=== PATIENT | female | born 1935 | race Caucasian/White ===

== ENCOUNTER → 2016-05-12 | Outpatient (CLI) | payer OTHER ==
[~2016-05-12] MED LIST: BENA20TA
[2016-05-12 11:02] LABS: Urine RBC None Seen /hpf (0 - 4)
[2016-05-12 11:43] LABS: Basophils # (auto) 0 uL; Basophils % (auto) 0.5 % (0.0-2.0); Eosinophils # (auto) 0.3 uL; Eosinophils % (auto) 3.3 % (0.0-7.0); Hematocrit 45.4 % (36.0-46.0); Hemoglobin 15.1 g/dL (12.2-16.2); Lymphocytes # (auto) 3.3 uL; Lymphocytes % (auto) 31.4 % (10.0-50.0); Mean Corpuscular Hemoglobin 31.9 pg (28.0-32.0); Mean Corpuscular Hgb Conc. 33.3 g/dL (32.0-36.0); Mean Platelet Volume 8.6 fL (7.4-10.4); Monocytes # (auto) 0.7 uL; Neutrophils # (auto) 6.1 uL; Neutrophils % (auto) 57.8 % (37.0-80.0); Platelet Count (auto) 431 10^3/uL (140-450); Red Cell Distribution Width 15.4 % (11.6-16.0); White Blood Cell 10.5 10^3/uL (4.4-10.8)
[2016-05-12 11:51] LABS: Urine Bilirubin Negative (Negative); Urine Blood Negative /uL (Negative); Urine Color Yellow (Yellow); Urine Glucose Normal (Normal); Urine Ketone Negative (Negative); Urine Nitrite Negative (Negative); Urine Squamous Epithelial Cell FEW /hpf (<5); Urine Urobilinogen Normal (Negative); Urine pH 6.5 (5.0-8.0)
[2016-05-12 14:19] LABS: Albumin 3.7 g/dL (3.4-5.0); BUN/Creatinine Ratio 15.5; Bilirubin, Total 0.4 mg/dL (0.2-1.0); Calcium 8.7 mg/dL (8.5-10.1); Total Protein 7.5 g/dL (6.4-8.2)
== END | disposition home or self-care (01) ==
LOC: LAB 09:48
PROVIDERS: ATTEND Internal Medicine
DX: Z00.00 Encounter for general adult medical examination without abnormal findings (principal); I10 Essential (primary) hypertension; E11.9 Type 2 diabetes mellitus without complications; E55.9 Vitamin D deficiency, unspecified
CPT/HCPCS: 36415; 80053; 80061; 81001; 82306; 83036; 84443; 85025

== ENCOUNTER 2020-06-22 12:06 | Inpatient (IN) | payer OTHER ==
[~2020-06-22] VITALS: Ht 167.6 cm; Wt 81.0 kg
[~2020-06-22 12:06] MED LIST changes: -BENA20TA; +BENA20TA PO
[2020-06-22 13:44] LABS: Basophils # (auto) 0 10 ^3/uL (0-0.2); Basophils % (auto) 0.4 % (0.0-2.0); Eosinophils # (auto) 0 10 ^3/uL (0-0.8); Eosinophils % (auto) 0.3 % (0.0-7.0); Hematocrit 41.9 % (36.0-46.0); Hemoglobin 14.1 g/dL (12.2-16.2); Lymphocytes # (auto) 2.1 10 ^3/uL (0.4-5.4); Lymphocytes % (auto) 17.1 % (10.0-50.0); Mean Corpuscular Hemoglobin 32.6 pg (28.0-32.0); Mean Corpuscular Hgb Conc. 33.7 g/dL (32.0-36.0); Mean Corpuscular Volume 96.8 fL (80.0-100.0); Monocytes % (auto) 7.9 % (0.0-12.0); Neutrophils # (auto) 8.9 10 ^3/uL (1.6-8.6); Neutrophils % (auto) 74.3 % (37.0-80.0); Platelet Count (auto) 485 10^3/uL (140-450); Red Blood Cells 4.33 10^6/uL (4.0-5.20); Red Cell Distribution Width 14.2 % (11.8-14.3)
[2020-06-22 13:54] LABS: Alanine Aminotransferase 15 U/L (13-56); Albumin 3.4 g/dL (3.4-5.0); Anion Gap 10 (5-15); Aspartate Aminotransferase 18 U/L (15-37); BUN/Creatinine Ratio 20.5; Blood Urea Nitrogen 9 mg/dL (7-18); Calcium 8.4 mg/dL (8.5-10.1); Carbon Dioxide 24 mmol/L (21-32); Chloride 99 mmol/L (98-107); GFR African American 174 mL/min; GFR Non-African American 144 mL/min; Glucose 109 mg/dL (74-106); Potassium 3.6 mmol/L (3.5-5.1); Sodium 133 mmol/L (136-145)
[2020-06-22 13:59] LABS: Alkaline Phosphatase 90 U/L (45-117); Bilirubin, Total 0.5 mg/dL (0.2-1.0); Total Protein 6.9 g/dL (6.4-8.2)
[2020-06-22] MEDS ORDERED: ACETAMINOPHEN 500 MG TAB PO PRN (18:15)
[2020-06-22] MEDS ORDERED: MORPHINE SULF INJ 2 MG/ML SYRINGE 1ML IV PRN ×2 (18:15)
[2020-06-22] MEDS ORDERED: NITROGLYCERIN 0.4 MG SL TAB SL PRN (18:15)
[2020-06-22] MEDS ORDERED: ONDANSETRON HCL 4 MG/2 ML VIAL IV PRN (18:15)
[2020-06-22] MEDS: BENAZEPRIL HCL 10 MG TAB PO SCH (20:01)
[2020-06-22 22:00] VITALS: BP 156/116
[2020-06-22] MEDS: DOCUSATE SOD 100 MG CAP PO SCH (22:12)
[2020-06-22 22:53] LABS: Urine Bacteria FEW /hpf (None Seen); Urine Blood Negative /uL (Negative); Urine Specific Gravity 1.007 (1.001-1.035); Urine WBC 1 /hpf (0 - 5)
[2020-06-23 05:00] VITALS: BP 136/78
[2020-06-23] MEDS: LIDOCAINE 5% TOPICAL PATCH TOP SCH (10:00)
[2020-06-23] MEDS ORDERED: BENAZEPRIL HCL 10 MG TAB PO SCH (10:00)
[2020-06-23] MEDS: DOCUSATE SOD 100 MG CAP PO SCH ×2 (10:46→20:38)
[2020-06-23] MEDS: LACTULOSE 20Gm/30ML SOLN PO SCH (10:46)
[2020-06-23] MEDS: FAMOTIDINE 20 MG TAB PO SCH (10:46)
[2020-06-23 12:56] VITALS: BP 150/92
[2020-06-23] MEDS ORDERED: IOHEXOL 300 MG/ML 100ML BOTTLE IJ ONE (15:16)
[2020-06-23 17:00] VITALS: BP 157/83
[2020-06-23] MEDS: BENAZEPRIL HCL 10 MG TAB PO SCH (18:00)
[2020-06-23] MEDS: HYDROcodone-ACET 5/325MG TAB PO PRN (20:38)
[2020-06-23 22:00] VITALS: BP 135/73
[2020-06-24 05:00] VITALS: BP 130/77
[2020-06-24 09:00] VITALS: BP 131/82
[2020-06-24] MEDS: LACTULOSE 20Gm/30ML SOLN PO SCH (10:00)
[2020-06-24] MEDS: DOCUSATE SOD 100 MG CAP PO SCH ×2 (10:29→21:11)
[2020-06-24] MEDS: FAMOTIDINE 20 MG TAB PO SCH (10:29)
[2020-06-24] MEDS: HYDROcodone-ACET 5/325MG TAB PO PRN (12:52)
[2020-06-24] MEDS: LIDOCAINE 5% TOPICAL PATCH TOP SCH (12:52)
[2020-06-24 17:00] VITALS: BP 123/73
[2020-06-24] MEDS ORDERED: BISACODYL 5 MG EC TAB PO ONE (18:30)
[2020-06-24] MEDS ORDERED: POLYETHYLENE GLYCOL 17 GM PWDR PO ONE (18:30)
[2020-06-24] MEDS: BENAZEPRIL HCL 10 MG TAB PO SCH (19:07)
[2020-06-24 22:00] VITALS: BP 136/71
[2020-06-25] MEDS: HYDROcodone-ACET 5/325MG TAB PO PRN (00:52)
[2020-06-25 05:00] VITALS: BP 136/80
[2020-06-25 09:03] VITALS: BP 134/80
[2020-06-25] MEDS: LACTULOSE 20Gm/30ML SOLN PO SCH (09:27)
[2020-06-25] MEDS: FAMOTIDINE 20 MG TAB PO SCH (09:27)
[2020-06-25] MEDS: DOCUSATE SOD 100 MG CAP PO SCH (09:27)
[2020-06-25] MEDS: LIDOCAINE 5% TOPICAL PATCH TOP SCH (09:28)
[2020-06-25 09:39] VITALS: BP 134/80
[2020-06-25] MEDS ORDERED: LACT10SO70 PO (10:48)
[2020-06-25 13:00] VITALS: BP 148/84
== END 2020-06-25 14:20 | disposition home health service (06) | DRG 605 ==
LOC: ER 12:06 → TELE-WESTW 18:13
PROVIDERS: ADMIT Nurse Practitioner Acute Care; ATTEND Internal Medicine
DX: S70.01XA Contusion of right hip, initial encounter (principal); N13.30 Unspecified hydronephrosis; M48.56XA Collapsed vertebra, not elsewhere classified, lumbar region, initial encounter for fracture; M48.54XA Collapsed vertebra, not elsewhere classified, thoracic region, initial encounter for fracture; I10 Essential (primary) hypertension; E78.5 Hyperlipidemia, unspecified; M16.11 Unilateral primary osteoarthritis, right hip; M48.061 Spinal stenosis, lumbar region without neurogenic claudication; G89.29 Other chronic pain; H40.9 Unspecified glaucoma; M25.511 Pain in right shoulder; W18.39XA Other fall on same level, initial encounter; Z20.822 Contact with and (suspected) exposure to COVID-19; N81.3 Complete uterovaginal prolapse; M81.0 Age-related osteoporosis without current pathological fracture; Z82.62 Family history of osteoporosis; Z82.49 Family history of ischemic heart disease and other diseases of the circulatory system; I25.2 Old myocardial infarction; Z88.8 Allergy status to other drugs, medicaments and biological substances; Z90.49 Acquired absence of other specified parts of digestive tract; Z90.710 Acquired absence of both cervix and uterus; Y93.89 Activity, other specified; Y92.090 Kitchen in other non-institutional residence as the place of occurrence of the external cause; Y99.8 Other external cause status
CPT/HCPCS: 36415; 72131; 73700; 74178; 76775; 80053; 81001; 84484; 85025; 87426; 93005; 96374; 96375; 97110; 97116; 97530; G0378; J2405